=== PATIENT | male | born 1995 | race Caucasian/White ===

== ENCOUNTER 2019-07-30 18:21 | Emergency (ER) | payer BC, OTHER ==
[2019-07-30 18:57] LABS: ABS Lymphocytes 2.2 10^3/ul (1.0-4.8); ABS Monocytes 0.7 10^3/ul (0-0.8); ABS Neutrophils 5.7 10^3/ul (1.5-7.7); Eosinophil % 0.1 %; Hematocrit 44 % (42-52); Lymphocyte % 25.3 %; Mean Corpuscular HGB Conc 34 g/dL (31-36); Mean Corpuscular Hemoglobin 27 pg (27-31); Mean Corpuscular Volume 80 fL (80-94); Mean Platelet Volume 8.1 fL (7.4-10.4); Platelet Count 336 10^3/uL (150-450); Red Blood Count 5.54 10^6 /uL (4.18-5.48); Red Cell Distribution Width 14 % (10-15); White Blood Count 8.6 10^3/uL (3.5-10.8)
--- NOTE | 2019-07-30 19:01 | ED ---
Psychiatric Complaint - HPI Summary HPI Summary: Pt is a 23 y/o M presenting to the ED with a chief psychiatric complaint. Pts mother states theyre here to figure out whether hes having a manic episode or not, as he has not been sleeping much over the past couple of days. At one point , he was awake for over 24 hours straight. One of his swing dance instructors is a psychotherapist and also expressed concern about some cryptic messages that had been posted on his Facebook page. Pt denies other sx aside from insomnia, including abd pain or fever. Hx marijuana use. - History Of Current Complaint Chief Complaint: EDPsychosocial Time Seen by Provider: 07/30/19 18:38 Accompanied By: mom Hx Obtained From: Patient, Family/Industrial Electrician Onset/Duration: Gradual Onset, Lasting Days, Still Present Timing: Days Severity Initially: Moderate Severity Currently: Moderate Aggravating Factor(s): Nothing Alleviating Factor(s): Nothing Associated Signs And Symptoms: Positive: Sleep Disturbance - Allergies/Home Medications Allergies/Adverse Reactions: Allergies Allergy/AdvReac Type Severity Reaction Status Date / Time No Known Allergies Allergy Verified 07/30/19 18:37 PMH/Surg Hx/FS Hx/Imm Hx Previously Healthy: Yes Endocrine/Hematology History: Denies: Hx Diabetes Cardiovascular History: Denies: Hx Hypertension Infectious Disease History: No Infectious Disease History: Denies: Traveled Outside the [place] in Last 30 Days - Family History Known Family History: Positive: Other - maternal: [place], paternal: anxiety, depression, OCD, paranoia - Social History Alcohol Use: Rare Hx Substance Use: No Substance Use Type: Reports: None Hx Tobacco Use: Yes Smoking Status (MU): Current Every Day Smoker Review of Systems Positive: Other - insomnia. Negative: Fever Negative: Abdominal Pain All Other Systems Reviewed And Are Negative: Yes Physical Exam - Summary Physical Exam Summary: Constitutional: Well-developed, Well-nourished, Alert. (-) Distressed Skin: Warm, Dry HENT: Normocephalic; Atraumatic Eyes: Conjunctiva normal Neck: Musculoskeletal ROM normal neck. (-) JVD, (-) Stridor, (-) Nuchal rigidity Cardio: Rhythm regular, rate normal, Heart sounds normal; Intact distal pulses; Radial pulses are 2+ and symmetric. (-) Murmur Pulmonary/Chest wall: Effort normal. (-) Respiratory distress, (-) Wheezes, (-) Rales Abd: Soft, (-) tenderness, (-) Distension, (-) Guarding, (-) Rebound Musculoskeletal: (-) Edema Neuro: Alert, Oriented x3 Psych: Mood and affect nml, tangential speech Triage Information Reviewed: Yes Vital Signs On Initial Exam: Initial Vitals Temp Pulse Resp BP Pulse Ox 97.5 F 115 16 170/94 99 07/30/19 18:26 07/30/19 18:26 07/30/19 18:26 07/30/19 18:26 07/30/19 18:26 Vital Signs Reviewed: Yes Procedures - Sedation Patient Received Moderate/Deep Sedation with Procedure: No Diagnostics - Vital Signs Vital Signs Temp Pulse Resp BP Pulse Ox 07/30/19 18:26 97.5 F 115 16 170/94 99 - Laboratory Lab Results: Lab Results 07/30/19 Range/Units 18:48 WBC 8.6 (3.5-10.8) 10^3/uL RBC 5.54 H (4.18-5.48) 10^6 /uL Hgb 15.0 (14.0-18.0) g/dL Hct 44 (42-52) % MCV 80 (80-94) fL MCH 27 (27-31) pg MCHC 34 (31-36) g/dL RDW 14 (10-15) % Plt Count 336 (150-450) 10^3/uL MPV 8.1 (7.4-10.4) fL Neut % (Auto) 65.7 % Lymph % (Auto) 25.3 % Stoddard % (Auto) 8.4 % Eos % (Auto) 0.1 % Baso % (Auto) 0.5 % Absolute Neuts (auto) 5.7 (1.5-7.7) 10^3/ul Absolute Lymphs (auto) 2.2 (1.0-4.8) 10^3/ul Absolute Monos (auto) 0.7 (0-0.8) 10^3/ul Absolute Eos (auto) 0.0 (0-0.6) 10^3/ul Absolute Basos (auto) 0.0 (0-0.2) 10^3/ul Absolute Nucleated RBC 0.0 10^3/ul Nucleated RBC % 0.0 Result Diagrams: 07/30/19 18:48 07/30/19 18:48 Lab Statement: Any lab studies that have been ordered have been reviewed, and results considered in the medical decision making process. Re-Evaluation - Re-Evaluation 1st re-eval Re-Evaluation Time: 20:31 Change: Improved Comment: As per Dr. Lance, pt is stable for discharge with dx of mood disorder nos. Course/Dx - Course Course Of Treatment: 23-year-old male presenting with manic-like symptoms. Patient denies SI or HI. Symptoms could be 2/2 to marijuana use. Cooperative room. Place on every 15 observation. Placed in gown, we'll have mental health evaluate. - Differential Dx/Clinical Impression Provider Diagnosis: Mood disorder Discharge ED - Sign-Out/Discharge Documenting (check all that apply): Patient Departure - Discharge Plan Condition: Stable Disposition: HOME Patient Education Materials: Mood Disorders (ED) Referrals: Sherry Mistry MD [Medical Doctor] - Additional Instructions: Per completion of a mental health evaluation, you are cleared for release and do not require inpatient psychiatric hospitalization at this time. Please go to nearest emergency room or call 911 if safety concerns arise or condition worsens. Important Phone Numbers: [facility] ph:[phone] Su[facility] Prevention [facility] Crisis Services ph:[phone] National Suicide Prevention Lifeline ph:[phone] AVDA (4501) [facility] ph:[phone] Alcoholics Anonymous ph: [facility] ph:[phone] [facility] ph:[phone] RECOMMENDATION: Follow up with primary care doctor on Thursday. Also, follow up with [facility] - Billing Disposition and Condition Condition: STABLE Disposition: Home - Attestation Statements Document Initiated by Scribe: Yes Documenting Scribe: Perri Hdz Provider For Whom Scribe is Documenting (Include Credential): Tera Bhardwaj MD. Scribe Attestation: Perri Cotton, scribed for Tera Bhardwaj MD. on 07/30/19 at 1535. Scribe Documentation Reviewed: Yes Provider Attestation: The documentation as recorded by the scribe, Perri Hdz accurately reflects the service I personally performed and the decisions made by me, Tera Bhardwaj MD. Status of Scribe Document: Viewed
[2019-07-30 19:04] LABS: Urine Appearance Clear; Urine Bilirubin Negative (Negative); Urine Blood Negative (Negative); Urine Color Yellow; Urine Glucose Negative (Negative); Urine Ketones Trace (Negative); Urine Nitrite Negative (Negative); Urine Protein Negative (Negative); Urine Specific Gravity 1.009 (1.010-1.030); Urine Urobilinogen Negative (Negative)
[2019-07-30 19:08] LABS: Albumin 5.1 g/dL (3.2-5.2); Anion Gap 8 mmol/L (2-11); CO2 Carbon Dioxide 30 mmol/L (22-32); Calcium 9.3 mg/dL (8.6-10.3); Chloride 99 mmol/L (101-111); Potassium 3.5 mmol/L (3.5-5.0); Sodium 137 mmol/L (135-145)
[2019-07-30 19:14] LABS: ALT 11 U/L (7-52); AST 17 U/L (13-39); Albumin/Globulin Ratio 1.9 (1-3); Alkaline Phosphatase 45 U/L (34-104); BUN/Creatinine Ratio 13.6 (8-20); Blood Urea Nitrogen 14 mg/dL (6-24); EGFR African American 109.3 (>60); EGFR Non-African American 90.3 (>60); Globulin 2.7 g/dL (2-4); Glucose 164 mg/dL (70-100); Total Protein 7.8 g/dL (6.4-8.9)
[2019-07-30 19:18] LABS: Urine Benzodiazepine Screen None Detected (None Detect); Urine Opiates Screen None Detected (None Detect)
[2019-07-30 19:25] LABS: Acetaminophen < 15 mcg/mL; Alcohol < 10 mg/dL (<10); Salicylate < 2.50 mg/dL (<30)
[2019-07-30 19:39] LABS: TSH (Thyroid Stimulating Horm) 0.66 mcIU/mL (0.34-5.60)
[2019-07-30 20:46] VITALS: BP 139/88
== END 2019-07-30 20:40 | disposition home or self-care (01) ==
LOC: ED 18:21
DX: F39 Unspecified mood [affective] disorder (principal); F17.200 Nicotine dependence, unspecified, uncomplicated
CPT/HCPCS: 36415; 80053; 80307; 80320; 80329; 81003; 84443; 85025; 99284; G0480

== ENCOUNTER 2019-08-01 14:58 | Inpatient (IN) | payer BC, OTHER ==
--- NOTE | 2019-08-01 15:06 | ED ---
Psychiatric Complaint - HPI Summary HPI Summary: The patient is a 23 y/o M arriving via ambulance with police to [facility] as 945 with need for psychiatric evaluation. Per EMS, the patient had been pulled over this morning while driving with a friend, and there were drugs on board. The patient ended up in the police station and had been lying on the floor asking for an interview and requesting handcuffs as he is a danger to himself and indicated that he would take their guns. In the ED, he is yelling and hostile in frustration. He was here two days ago with a similar but not as severe presentation and was safe for discharge following MHE. No PMHx. FHx: anxiety, depression, OCD, paranoia. Current smoker, rare EtOH, no substance use. Medications reviewed. Allergies noted. Level 5 Caveat secondary to patients state of agitation. History obtained from police, EMS, and medical records. - History Of Current Complaint Hx Obtained From: EMS, Medical Records, Other: - police Hx From Patient Unobtainable Due To: Other - Level 5 Caveat - patient is agitated Onset/Duration: Lasting Hours, Still Present Timing: Constant Character: Frustrated Aggravating Factor(s): Other - pulled over by police this morning - Allergies/Home Medications Allergies/Adverse Reactions: Allergies Allergy/AdvReac Type Severity Reaction Status Date / Time No Known Allergies Allergy Verified 08/01/19 15:12 Home Medications: Home Medications NK [No Home Medications Reported] 08/01/19 [History Confirmed 08/01/19] PMH/Surg Hx/FS Hx/Imm Hx Endocrine/Hematology History: Denies: Hx Diabetes Cardiovascular History: Denies: Hx Hypertension Psychiatric History: Denies: Hx Eating Disorder, Hx Depression, Hx Post Traumatic Stress Disorder , Hx Schizophrenia, Hx Bipolar Disorder, Hx Suicide Attempt - Surgical History Surgical History: Unable to Obtain/Confirm Surgery Procedure, Year, and Place: Level 5 - pt agitated - Family History Known Family History: Positive: Other - maternal: [place], paternal: anxiety, depression, OCD, paranoia - Social History Alcohol Use: Rare Hx Substance Use: No Substance Use Type: Reports: None Substance Use Comment - Amount & Last Used: 1 day ago Hx Tobacco Use: Yes Smoking Status (MU): Current Every Day Smoker Review of Systems Positive: Other - hostile, yelling, frustrated All Other Systems Reviewed And Are Negative: No - Comments Additional Review of Systems Comments: Level 5 Caveat secondary to patients state of agitation. Physical Exam - Summary Physical Exam Summary: General: Well appearing, no distress, Patient is agitated HEENT: PERRL Cardiovascular: Skin is well perfused Pulmonary: No respiratory distress, no tachypnea Abdomen: Non-distended Skin: Warm, pink, dry MSK: No edema Psych: Tangential speech, Yelling, Hostile Neuro: A&Ox3 Triage Information Reviewed: Yes Vital Signs Reviewed: Yes Completion Of Physical Exam Limited Due To: Level 5 - patient is agitated Procedures - Sedation Patient Received Moderate/Deep Sedation with Procedure: No Re-Evaluation - Re-Evaluation First Eval Re-Evaluation Time: 15:00 Comment: Patient is medically clear for MHE. Course/Dx - Course Course Of Treatment: 23 y/o male p/w paranoia, delusions and aggressive behavior. On arrival to ED, patient verbally aggressive with staff however directable. Patient was placed in room, placing gown. Put on constant observation. Bed removed the room as patient was laying on the floor. Psychiatry evaluated patient and he is appropriate for involuntary admission. - Differential Dx/Clinical Impression Provider Diagnosis: Psychotic disorder - Physician Notifications Discussed Care Of Patient With: Kwame Otoole - psychiatry Time Discussed With Above Provider: 15:40 Instructed by Provider To: Other - Dr. Otoole and mental health staff have evaluated the patient and have determined he is appropriate for involuntary admission. Discharge ED - Sign-Out/Discharge Documenting (check all that apply): Patient Departure - Patient admitted by Dr. Otoole to the [facility] psychiatric unit. - Discharge Plan Condition: Stable Disposition: PSYCHIATRIC FACILITY-[facility] Referrals: No Primary Care Phys,[facility] [Primary Care Provider] - - Billing Disposition and Condition Condition: STABLE Disposition: Psychiatric Facility [facility] - Attestation Statements Document Initiated by Scribe: Yes Documenting Scribe: Jackelyn Hay Provider For Whom Itzel is Documenting (Include Credential): Dr. Tera Bhardwaj MD Scribe Attestation: Jackelyn Cotton scribed for Dr. Tera Bhardwaj MD on 08/01/19 at 1831. Scribe Documentation Reviewed: Yes Provider Attestation: The documentation as recorded by the Jackelyn gracia accurately reflects the service I personally performed and the decisions made by me, Dr. Tera Bhardwaj MD Status of Scribe Document: Viewed
[2019-08-01] MEDS ORDERED: Al Hydrox/Mg Hydrox/Simet LIQ* 30 ML UDC PO PRN (15:50)
[2019-08-01] MEDS ORDERED: Acetaminophen TAB* 325 MG PO PRN (15:50)
[2019-08-01] MEDS ORDERED: LORazepam TAB(*) 1 MG PO PRN (15:52)
[2019-08-01] MEDS ORDERED: chlorproMAZINE TAB* 100 MG PO PRN (15:52)
--- NOTE | 2019-08-02 11:37 | HP ---
H&P (Free Text) History and Physical: Justification for admission: Immediate Safety. CC " I just want to dance" The patient was brought to [facility] by EMS with police for MHE following an incident where he was pulled over with drugs in the car and was brought into the police station and began to lay on the floor asking for an interview and requesting to be handcuffed because he is a danger to himself and would take the police guns. Patient was seen in his room before encounter in his room pacing. The patient expressed that the government is spying on him and asks if it is really true that people landed on the [place], patient is requesting to Skype his mother and begins to say I once watched a movie with her. He denied access to firearms or stockpiles of medications. He reported diminished sleep and appetite, and is refusing medications and to drink water. The patient denied auditory and/ or visual hallucinations. Psychosis Patient believes that the government is out to get him, and spies on him and feels unsafe of all government entities. Bipolar Patient has increased talkativeness and feeling irritable most of the time while having an persistent abundance of energy most of the day without the use of energy drinks, stimulants, or recreational drug use. He reported having the decreased need to sleep for days. Per his mother he has been spending money recklessly . Depression Denied feeling depressed. Denied having diminished interests which were found to be enjoyable in the past. Denied having crying spells , feeling empty inside , feelings of hopelessness , and worthlessness. Denied unintentional weight loss and appetite. Denied interruption of sleep , or feeling tired throughout the day. Denied loss of energy or lack of motivation to complete tasks. Denied overwhelming feelings of guilt or decreased concentration. Denied recurrent thoughts of . Denied thoughts that they would be better off . Anxiety Denied having symptoms of anxiety such as having times where heart feels that it is beating out of chest , sweaty palms, or shallow breathing. Denied having uncomfortable or intrusive thoughts. Denied feeling restless, high strung, or worrying too much most of the time. Phobias: Patient denied having excessive fear of a particular thing or situation. Eating disorders: Patient denied having excessive eating habits or feelings of guilt after eating. Denied repeated episodes of self induced vomiting after eating. PTSD Denied flashbacks, nightmares and avoidance of a prior traumatic event. PAST PSYCHIATRIC HISTORY: Prior Diagnosis : None History of past Psychiatric Hospitalizations: Denied prior psychiatric admission. History of past suicide/homicide attempts : Denied past suicide attempts, denied repeated self injurious behavior. Denied history of violence. Outpatient follow-up: Denied Medications: Denied a past trials of medication Guardianship: None. FAMILY HISTORY: - Suicide: Denied family history of suicide. - Mental illness: Denied a history of mental health in immediate family members. - Substance abuse: Denied substance abuse among family members. SUBSTANCE ABUSE HISTORY: - EtOH: Denied recent use. No associated legal issues, blackouts, seizures, DTs or past hospitalizations due to alcohol. - Tobacco: 1/2 PPD - Cannabis: Denied - Heroin: Denied - Cocaine: Denied - Substance abuse treatment: Denied past substance abuse treatment SOCIAL HISTORY: - Denied a history of childhood physical and or sexual abuse Born in [place] - Education: - Living situation: Currently lives in [place] with his mother - Employment history: Works at [employer] - Relationship: Single and has no children. - Legal history: Denied - service history: Denied PAST MEDICAL HISTORY: Denied heart disease, diabetes, cancer and/ or other medical conditions. - Allergies: Denied drug or other allergies. Physical Exam: Please see ED note Mental Status Exam on Admission APPEARANCE : 23 year old Male who appears stated age. Patient is malodourous, and appears to have poor hygiene and grooming. BEHAVIOR: evasive EYE CONTACT: Poor PSYCHOMOTOR ACTIVITY: restless MOVEMENTS: pacing SPEECH : Increased rate MOOD : "I am stressed " AFFECT : Type is elevated Range is restricted Mood Incongruent THOUGHT PROCESS: Formulated in tangential disorganized THOUGHT CONTENT: paranoid delusions PERCEPTION: No current auditory or visual hallucinations. SUICIDALITY Denied suicidal ideation, intent or plan. HOMICIDALITY Denied homicidal ideation, intent or plan. Insight/judgment: Poor insight and judgment ORIENTATION: Oriented to self, location, and time. Diagnosis on Admission: Bipolar I disorder with psychotic features Assessment: 23 year old male with no known psychiatric history came to the hospital by EMS and police after he requested to be handcuffed and threatened to take guns from the police Plan #Admit to [facility], Q15 minute observation. Start regular diet. Encourage participation in group therapy and psychoeducation #Patient evaluated in ED and was determined by the emergency room Physician to be medically fit for admission to the [facility]. # Justification for Admission: For immediate safety per outlined in the [facility] Code. # The patient requires psychiatric inpatient admission at this time to assure safety, receive treatment and work toward stabilization. # Labs ordered: CBC, CMP, UDS, TSH, HBA1c, TSH, Toxicology screen, Urine analysis, and lipid profile. EKG ordered for risk of QT prolongation of antipsychotic medication. # Obtain collateral information once release is signed. # Collaboration with Commercial Production Editor Marilia Castaneda # Start seroquel 300mg qhs # Start depakote 250mg BID Tobacco use disorder: nicotine supplement offered and put in place. #Goals before discharge include: To eliminate/ reduce suicidal ideation Tentative Discharge: Pending psychiatric stabilization Pt's mother's name is Rashida Stern, she can be reached at [phone]. The risks, benefits, and alternative treatment options were discussed as well as the risks of refusing treatment. After this discussion and an acknowledgement of this understanding was made. A risk/ benefit assessment of treatment was considered and discussed with the patient. When comparing the risks of treatment with the dangers of not receiving treatment, the benefits of treatment outweigh the treatment risks at this time. Risks of allergy, suicidal ideation, behavioral changes, dystonia, rashes, electrolyte imbalances, movement disorders, cardiac conduction changes, serotonin syndrome, metabolic risks and NMS were among some of the risks discussed. Acetaminophen (Tylenol Tab*) 650 mg PO Q4H PRN PRN Reason: for pain; or Temp >101 F Al Hydrox/Mg Hydrox/Simethicone (Maalox Plus*) 30 ml PO Q4H PRN PRN Reason: INDIGESTION Chlorpromazine HCl (Thorazine Tab*) 100 mg PO Q6H PRN PRN Reason: AGITATION Lorazepam (Ativan Tab(*)) 1 mg PO Q6H PRN PRN Reason: ANXIETY Quetiapine Fumarate (Seroquel Tab*) 400 mg PO BEDTIME CARLINE Valproic Acid (Depakene Cap(*)) 500 mg PO BID CARLINE
[2019-08-02] MEDS ORDERED: QUEtiapine TAB* 300 MG PO SCH (21:00)
[2019-08-02] MEDS ORDERED: QUEtiapine TAB* 100 MG PO SCH (21:00)
[2019-08-02] MEDS: Valproic Acid CAP(*) 250 MG PO SCH ×2 (21:29)
--- NOTE | 2019-08-03 13:01 | PN ---
Subjective - Subjective Date of Service: 08/03/19 Service Type: [id number] Hosp care 35 min high complexity Subjective: Nursing Report: Patient was visible on unit, no behavioral incidents. Compliant with medications CC: "I hear voices" Patient was seen and evaluated today. The patient reported he thinks someone is going to hurt him. The patient reports taking his medications. Per nursing no behavioral issues or overnight events reported. Patient reported that he is tolerating medications without side effects. Objective - General Observations Appearance: Disheveled Appears Stated Age: Yes Stature: Thin Posture: Slumped Eye Contact: Avoidant Behavior/Activity: Peculiar, Impulsive - Interaction Observations Attitude Towards Examiner: Mistrustful Stated Mood: Expansive, Anxious Affect: Restricted Speech Pattern/Tone: Excessive Thought Process: Disorganized, Loose Associations, Flight of Ideas Perception: Depersonalization Thought Content: Paranoid Thought Process: Lethality: Paranoid Ideation Hallucination Type: Auditory Delusion Type: Persecution - Cognitive Function Orientation: A&O x 4 Level of Consciousness: Awake - Medication Compliance Cooperative with Inpatient Medication Regimen: Yes - Group Participation Participates in Group Activities: No Assessment - Assessment Merits Inpatient Hospitalization: For Immediate Safety Clinical Impression: 23 year old male with no known psychiatric history came to the hospital by EMS by police after he requested to be handcuffed and threatened to take guns from the police Plan - Plan Treatment Plan: Name: JUANA STERN Birthdate: 1995 [id number] #Q15 minute observation. # The patient requires psychiatric inpatient admission at this time to assure safety, receive treatment and work toward stabilization. EKG ordered for risk of QT prolongation of antipsychotic medication. # Obtain collateral information once release is signed. # Collaboration with Outreach Liaison Marilia Castaneda # Increase seroquel 400mg qhs # Increase depakote 500mg BID Tobacco use disorder: nicotine supplement offered and put in place. #Goals before discharge include: To eliminate/ reduce suicidal ideation Tentative Discharge: Pending psychiatric stabilization Pt's mother's name is Rashida Stern, she can be reached at [phone]. Continued Medication Management: Continue Outpt Medication Medications: Current Medications Acetaminophen (Tylenol Tab*) 650 mg PO Q4H PRN PRN Reason: for pain; or Temp >101 F Al Hydrox/Mg Hydrox/Simethicone (Maalox Plus*) 30 ml PO Q4H PRN PRN Reason: INDIGESTION Chlorpromazine HCl (Thorazine Tab*) 100 mg PO Q6H PRN PRN Reason: AGITATION Lorazepam (Ativan Tab(*)) 1 mg PO Q6H PRN PRN Reason: ANXIETY Quetiapine Fumarate (Seroquel Tab*) 400 mg PO BEDTIME CARLINE Valproic Acid (Depakene Cap(*)) 500 mg PO BID CARLINE - Discharge Plan Discharge Plan: Inpatient Hospitalization
[2019-08-03] MEDS: Valproic Acid CAP(*) 250 MG PO SCH ×2 (14:21→20:20)
[2019-08-03] MEDS ORDERED: QUEtiapine TAB* 100 MG PO SCH (21:00)
[2019-08-04] MEDS: Valproic Acid CAP(*) 250 MG PO SCH ×2 (08:10→21:03)
--- NOTE | 2019-08-04 10:25 | PN ---
Subjective - Subjective Date of Service: 08/04/19 Service Type: [id number] Hosp care 35 min high complexity Subjective: Nursing Report: Patient was visible on unit, no behavioral incidents. Slept 6 hours CC: "I am scared of people other than my mother" Patient was seen and evaluated today. The patient reported he feels unsafe. He took medications. He reported having adequate sleep (6hours). Per nursing no behavioral issues or overnight events reported. Patient reported that he is tolerating medications without side effects. Objective - General Observations Appearance: Disheveled Appears Stated Age: Yes Stature: Thin Posture: Tense Eye Contact: Intense Behavior/Activity: Stereotyped, Peculiar, Impulsive - Interaction Observations Attitude Towards Examiner: Cooperative Stated Mood: Elevated Affect: Restricted Speech Pattern/Tone: Normal Volume Thought Process: Loose Associations Perception: Derealization Thought Content: Paranoid Thought Process: Lethality: Paranoid Ideation Hallucination Type: Auditory Delusion Type: Reference - Cognitive Function Orientation: A&O x 4 Level of Consciousness: Alert - Medication Compliance Cooperative with Inpatient Medication Regimen: Yes - Group Participation Participates in Group Activities: No Assessment - Assessment Merits Inpatient Hospitalization: For Immediate Safety Clinical Impression: 23 year old male with no known psychiatric history came to the hospital by EMS by police after he requested to be handcuffed and threatened to take guns from the police Plan - Plan Treatment Plan: Name: JUANA STERN Birthdate: 1995 [id number] #Q15 minute observation. # The patient requires psychiatric inpatient admission at this time to assure safety, receive treatment and work toward stabilization. # EKG ordered for risk of QT prolongation of antipsychotic medication. Rate 84 and QTc 412 # Collateral information obtained from mother Rashida Stern, . # Collaboration with Mill Manager Marilia Castaneda # Continue seroquel 400mg qhs # Continue depakote 500mg BID #Valproic acid level Thursday #Family meeting Thursday with his mother Tobacco use disorder: nicotine supplement offered and put in place. #Goals before discharge include: To eliminate/ reduce suicidal ideation Tentative Discharge: Pending psychiatric stabilization Continued Medication Management: Continue Outpt Medication Medications: Current Medications Acetaminophen (Tylenol Tab*) 650 mg PO Q4H PRN PRN Reason: for pain; or Temp >101 F Al Hydrox/Mg Hydrox/Simethicone (Maalox Plus*) 30 ml PO Q4H PRN PRN Reason: INDIGESTION Chlorpromazine HCl (Thorazine Tab*) 100 mg PO Q6H PRN PRN Reason: AGITATION Lorazepam (Ativan Tab(*)) 1 mg PO Q6H PRN PRN Reason: ANXIETY Last Admin: 08/04/19 08:10 Dose: 1 mg Quetiapine Fumarate (Seroquel Tab*) 400 mg PO BEDTIME [facility] Last Admin: 08/03/19 20:19 Dose: 400 mg Valproic Acid (Depakene Cap(*)) 500 mg PO BID [facility] Last Admin: 08/04/19 08:10 Dose: 500 mg - Discharge Plan Discharge Plan: Inpatient Hospitalization
[2019-08-04] MEDS ORDERED: QUEtiapine TAB* 300 MG PO SCH (21:00)
[2019-08-04] MEDS ORDERED: QUEtiapine TAB* 100 MG PO SCH (21:00)
[2019-08-05] MEDS: Valproic Acid CAP(*) 250 MG PO SCH ×2 (11:03→21:20)
--- NOTE | 2019-08-05 11:28 | PN ---
BSU: Group Therapy Note - Service Type Service Type: 16852 Group Psychotherapy - Cognitive Behavioral Group Note: Mainor was pleasantly related this moring, but continues to be disorganized in thought. He was active in conversation, but very tangential. He responded well to redirection, and was able to listen to peer and staff conversation attentively. He voices importance of compliance with medicaitons, and reports improved sleep hygiene.
--- NOTE | 2019-08-05 11:48 | PN ---
Subjective - Subjective Date of Service: 08/05/19 Service Type: 48240 Hosp care 35 min high complexity Subjective: Nursing Report: Patient was visible on unit, no behavioral incidents. Slept overnight. CC: "Just fine" Patient was seen and evaluated today. The patient reported he is better but feels that he should not be here. He reported getting good sleep. He reported having adequate appetite and sleep. Per nursing no behavioral issues or overnight events reported. Patient reported that he is tolerating medications without side effects. Objective - General Observations Appearance: Disheveled Appears Stated Age: Yes Stature: Thin Posture: Slumped Eye Contact: Avoidant Behavior/Activity: Accelerated, Peculiar - Interaction Observations Attitude Towards Examiner: Evasive Stated Mood: Elevated Affect: Restricted Speech Pattern/Tone: Appropriate Thought Process: Coherent Perception: WNL Thought Content: Paranoid Thought Process: Lethality: Paranoid Ideation Hallucination Type: Denies Delusion Type: Denies - Cognitive Function Orientation: A&O x 4 Level of Consciousness: Awake - Medication Compliance Cooperative with Inpatient Medication Regimen: Yes - Group Participation Participates in Group Activities: Partial Assessment - Assessment Merits Inpatient Hospitalization: For Immediate Safety Clinical Impression: 23 year old male with no known psychiatric history came to the hospital by EMS by police after he requested to be handcuffed and threatened to take guns from the police Plan - Plan Treatment Plan: Name: JUANA STERN Birthdate: 1995 [id number] #Q30 minute observation with comfort room # The patient requires psychiatric inpatient admission at this time to assure safety, receive treatment and work toward stabilization. # EKG ordered for risk of QT prolongation of antipsychotic medication. Rate 84 and QTc 412 # Collateral information obtained from mother Rashida Stern, . # Collaboration with Upholstery Restorer Marilia Castaneda # Continue seroquel 600mg qhs # Continue depakote 500mg BID #Valproic acid level Thursday # Monitor vital signs #Family meeting Thursday with his mother Tobacco use disorder: nicotine supplement offered and put in place. #Goals before discharge include: To eliminate/ reduce suicidal ideation Tentative Discharge: Pending psychiatric stabilization Vital Signs Temp Pulse Resp BP Pulse Ox 98.2 F 114 16 136/84 100 08/05/19 08:00 08/05/19 08:00 08/05/19 08:00 08/05/19 08:00 08/05/19 08:00 Continued Medication Management: Continue Outpt Medication Medications: Current Medications Acetaminophen (Tylenol Tab*) 650 mg PO Q4H PRN PRN Reason: for pain; or Temp >101 F Al Hydrox/Mg Hydrox/Simethicone (Maalox Plus*) 30 ml PO Q4H PRN PRN Reason: INDIGESTION Chlorpromazine HCl (Thorazine Tab*) 100 mg PO Q6H PRN PRN Reason: AGITATION Lorazepam (Ativan Tab(*)) 1 mg PO Q6H PRN PRN Reason: ANXIETY Last Admin: 08/04/19 08:10 Dose: 1 mg Quetiapine Fumarate (Seroquel Tab*) 400 mg PO BEDTIME [facility] Last Admin: 08/04/19 21:03 Dose: 400 mg Valproic Acid (Depakene Cap(*)) 500 mg PO BID [facility] Last Admin: 08/05/19 11:03 Dose: 500 mg - Discharge Plan Discharge Plan: Inpatient Hospitalization
[2019-08-05] MEDS: QUEtiapine TAB* 300 MG PO SCH (21:20)
[2019-08-06] MEDS: Valproic Acid CAP(*) 250 MG PO SCH ×2 (09:44→20:24)
--- NOTE | 2019-08-06 14:22 | PN ---
Subjective - Subjective Date of Service: 08/06/19 Service Type: 75862 Hosp care 25 min moderate complexity Subjective: Mainor appears to have improved significantly but says he doesn't have any recollection of events leading up to his hospitalization. Today he denies any psychiatric problems what so ever and wants to be discharged home. Compliant with meds and apparently tolerating them well. Denies SI, HI or Delusions. Per nursing no issues. Objective - General Observations Appearance: Neat Stature: Thin Posture: WNL Eye Contact: Average Behavior/Activity: WNL - Interaction Observations Attitude Towards Examiner: Cooperative Attitude Towards Parent/Guardian: Positive Interaction Stated Mood: Euthymic Affect: Full Speech Pattern/Tone: Clear, Appropriate, Normal Volume Thought Process: Coherent, Goal Directed Perception: WNL Thought Content: WNL Hallucination Type: Denies Delusion Type: Denies - Cognitive Function Orientation: A&O x 4 Level of Consciousness: Awake, Alert, Appropriate Cognition: WNL Estimated Intelligence: Normal Insight: WNL Judgment Within Normal Limits: No Ability to Make Reasonable Decisions: Mildly Impaired - Medication Compliance Cooperative with Inpatient Medication Regimen: Yes - Group Participation Participates in Group Activities: Yes Assessment - Assessment Merits Inpatient Hospitalization: Consolidate Improvements, For Discharge Planning Clinical Impression: 23 year old male with no known psychiatric history came to the hospital by EMS by police after he requested to be handcuffed and threatened to take guns from the police Plan - Plan Treatment Plan: Name: MAINOR STERN Birthdate: 1995 [id number] #Q30 minute observation with comfort room # The patient requires psychiatric inpatient admission at this time to assure safety, receive treatment and work toward stabilization. # EKG ordered for risk of QT prolongation of antipsychotic medication. Rate 84 and QTc 412 # Collateral information obtained from mother Rashida Stern, . # Collaboration with Prep Manager Marilia Castaneda # Continue seroquel 600mg qhs # Continue depakote 500mg BID #Valproic acid level Thursday # Monitor vital signs #Family meeting Thursday with his mother Tobacco use disorder: nicotine supplement offered and put in place. #Goals before discharge include: To eliminate/ reduce suicidal ideation Tentative Discharge: Pending psychiatric stabilization Vital Signs Temp Pulse Resp BP Pulse Ox 98.2 F 114 16 136/84 100 08/05/19 08:00 08/05/19 08:00 08/05/19 08:00 08/05/19 08:00 08/05/19 08:00 Continued Medication Management: Continue Outpt Medication Medications: Current Medications Acetaminophen (Tylenol Tab*) 650 mg PO Q4H PRN PRN Reason: for pain; or Temp >101 F Al Hydrox/Mg Hydrox/Simethicone (Maalox Plus*) 30 ml PO Q4H PRN PRN Reason: INDIGESTION Chlorpromazine HCl (Thorazine Tab*) 100 mg PO Q6H PRN PRN Reason: AGITATION Lorazepam (Ativan Tab(*)) 1 mg PO Q6H PRN PRN Reason: ANXIETY Last Admin: 08/04/19 08:10 Dose: 1 mg Quetiapine Fumarate (Seroquel Tab*) 600 mg PO BEDTIME [facility] Last Admin: 08/05/19 21:20 Dose: 600 mg Valproic Acid (Depakene Cap(*)) 500 mg PO BID [facility] Last Admin: 08/06/19 09:44 Dose: 500 mg - Discharge Plan Discharge Plan: Outpatient Follow Up Outpatient Program: [facility]
[2019-08-06] MEDS: QUEtiapine TAB* 300 MG PO SCH (20:24)
[2019-08-07] MEDS: Valproic Acid CAP(*) 250 MG PO SCH ×2 (10:01→21:50)
[2019-08-07 20:45] LABS: ABS Lymphocytes 2.2 10^3/ul (1.0-4.8); ABS Monocytes 0.5 10^3/ul (0-0.8); ABS Neutrophils 5.6 10^3/ul (1.5-7.7); Eosinophil % 0.5 %; Hematocrit 45 % (42-52); Hemoglobin 14.8 g/dL (14.0-18.0); Lymphocyte % 26.3 %; Mean Corpuscular HGB Conc 33 g/dL (31-36); Mean Corpuscular Hemoglobin 27 pg (27-31); Mean Corpuscular Volume 81 fL (80-94); Mean Platelet Volume 8.8 fL (7.4-10.4); Nucleated Red Blood Cells % 0.1; Platelet Count 221 10^3/uL (150-450); Red Blood Count 5.57 10^6 /uL (4.18-5.48); Red Cell Distribution Width 14 % (10-15); White Blood Count 8.5 10^3/uL (3.5-10.8)
[2019-08-07 21:00] LABS: Albumin 5.1 g/dL (3.2-5.2); Albumin/Globulin Ratio 2.3 (1-3); Calcium 9.4 mg/dL (8.6-10.3); EGFR African American 124.9 (>60); EGFR Non-African American 103.2 (>60); Globulin 2.2 g/dL (2-4); Magnesium 2.1 mg/dL (1.9-2.7); Potassium 3.6 mmol/L (3.5-5.0); Total Bilirubin 0.6 mg/dL (0.2-1.0); Total Protein 7.3 g/dL (6.4-8.9)
[2019-08-07 21:36] LABS: TSH (Thyroid Stimulating Horm) 1.16 mcIU/mL (0.34-5.60)
[2019-08-07 21:38] LABS: Free T4 0.84 ng/dL (0.61-1.12)
[2019-08-07 21:47] LABS: Urine Appearance Clear; Urine Bilirubin Negative (Negative); Urine Blood Negative (Negative); Urine Color Colorless; Urine Glucose Negative (Negative); Urine Ketones Negative (Negative); Urine Nitrite Negative (Negative); Urine Protein Negative (Negative); Urine Specific Gravity 1.001 (1.010-1.030); Urine Urobilinogen Negative (Negative)
[2019-08-07 22:02] LABS: Urine Benzodiazepine Screen None Detected (None Detect); Urine Opiates Screen None Detected (None Detect)
--- NOTE | 2019-08-08 03:31 | CONS ---
CC: Dr. Mitali Ledesma * CONSULTATION REPORT: DATE OF CONSULT: 08/07/19 PRIMARY CARE PROVIDER: Dr. Mitali Ledesma. MY ATTENDING PHYSICIAN WHILE IN THE HOSPITAL: Dr. Child (report dictated by Song Marcano NP). REQUESTING PHYSICIAN IN CONSULT: Dr. Tiwari. REASON FOR MEDICAL CONSULT: Evaluation of tachycardia. HISTORY OF PRESENT ILLNESS: Mr. Perkins is a 24-year-old male patient who presented to the behavioral services unit on 08/01/19 with concerns of being pulled over by EMS with police for mental health evaluation following an incident where he was pulled over with drugs in the car and was brought into the police station and was lying on the floor asking for interview and requesting to be hand cuffed because he is a danger to himself and want to take the police guns. He was admitted and was stabilized from that standpoint. There was concern, due to the suicidal ideation, he was started on initially high-dose Seroquel and Depakote. It has been noted that he has been tachycardic throughout his hospitalization stay here. Last night, he had an episode of tachycardia around the same time at 8 with the heart rate in the 140s to 150s and then again tonight, he had heart rate in the 140s, now in the one teens. He denies feeling short of breath, denies feeling lightheaded, denies feeling anxious, denies having any chest pain, no shortness of breath. He says that few weeks prior to this, he was feeling febrile. He thinks that he may have been suffering from the flu. It is of note that prior to the heart rate at 1900 tonight, he was having a phone call with his mother and was contemplating not taking his medications and wanted to be discharged so that he could do this on his own. There were concerns because of the persistent tachycardia and we were asked to evaluate in consult. He denies any recent vomiting, no diarrhea, no fevers were reported here, and denies being in any pain and denied any other drug use with the exception of cannabis. PAST MEDICAL HISTORY: The past medical history was denied. PAST SURGICAL HISTORY: He had surgery to his right arm previously. MEDICATIONS: His current medications include: 1. Tylenol 650 mg every 4 hours as needed. 2. Maalox 30 cc every 4 hours as needed. 3. Thorazine 100 mg every 6 hours as needed. 4. Ativan 1 mg every 6 hours as needed. 5. Depakote 500 mg p.o. twice a day. ALLERGIES: To medications include no known drug allergies. FAMILY HISTORY: He says his mother is healthy. Father has a history of lung cancer. SOCIAL HISTORY: He says he does smoke marijuana. He does not drink alcohol. He has denied any other drug use. No reports heroin use, methamphetamines, or cocaine abuse. His surrogate decision maker would be Dr. Mitali Ledesma per the patient. REVIEW OF SYSTEMS: There is no documented fever. He denied having any significant weight change. There is no double vision. He denies having any ear discharge. There was no rhinorrhea. No sore throat. No thyroid enlargement. Denied any chest pain. There is no orthopnea, no nocturnal dyspnea. There was no abdominal pain. No nausea, no vomiting. No dysuria, no frequency. No seizure, no loss of consciousness. No pruritus and no skin ulcerations. Review of 14 systems completed, all others are negative. PHYSICAL EXAM: Vital Signs: Blood pressure 152/94, pulse 113, respirations 16 , O2 saturation 100%, temperature 97.3. General: At this time, Mr. Perkins is a 24-year- old male patient. He appears to be well nourished, well developed. He is sitting in the psychiatric unit. He does not appear to be in any acute distress. HEENT: Head is atraumatic and normocephalic. Eyes: EOMs are intact. Sclerae anicteric and not pale. Neck: Supple. Throat: Oral mucosa appears to be moist. No oropharyngeal erythema. Heart: Sounds S1 and S2. He actually, when I was listening to him, had no murmurs, rubs, or gallops. Apically, his heart rate was noted to be at 100. Lungs: Clear to auscultation bilaterally. No wheezes, rales, or rhonchi. Abdomen: Soft, it was flat, nontender. Bowel sounds are present. Extremities: Again, no peripheral edema. He had 5/5 strength, moving all 4 extremities. Neurologic: He is awake, he is alert, he is oriented x3. Speech clear. Tongue midline. No facial drooping was noted. Pickle Maker were equal. His cranial nerves were intact. He had good strength throughout. He is moving all 4 extremities. Skin: Grossly intact. DIAGNOSTIC STUDIES/LAB DATA: Unfortunately, last labs that I have access to were from 07/30/19: WBC is 8.6, RBC of 5.54, hemoglobin of 15.0, hematocrit of 44, platelet count of 336. His chemistry, sodium 137, potassium 3.5, chloride 99, BUN 14, bicarb 30, creatinine of 1.03. Total bili 1.9. AST 17, ALT 11, alk phos 45. TSH 0.66. There was a toxicology screen, which was positive for cannabinoids, alcohol negative. He had an EKG done yesterday, which showed a sinus tachycardia, rate of [address] elevation. He did have LVH noted. There was some borderline depression in lead III and aVF, but no elevation was noted. When we reviewed it to a previous EKG from 08/03/19, again he does have a normal sinus rhythm with heart rate of 84. No ST elevations or T-wave inversions noted. The tachycardia was new. Old medical records were reviewed. ASSESSMENT AND PLAN: Mr. Perkins is a 24-year-old male patient presenting to the behavioral service unit after being admitted when he was arrested by police and the EMS as well, as he was found to be pulled over with drugs in his car and brought into the police station and in the police station was felt to be a danger to himself and was threatening to take the police guns, he was admitted for stabilization. We were asked to evaluate in consult for tachycardia. My recommendations at this point are: 1. 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 I will defer the management to Psychiatry. 2. Tachycardia. Etiology is unclear. I do note that he has had a borderline tachycardia since he has been here on 08/01/19. I do note that when he was here on 07/30/19, his heart rate was noted to be in the one teens as well. Etiology is unclear, however, I would like to check a CBC, CMP, TSH, free T4, checking a chest x-ray, echocardiogram given the left ventricular hypertrophy noted on EKG and the tachycardia. I also will check a urine tox screen and a urinalysis as well to look for secondary causes. I have asked nursing staff to check his vital signs every 4 hours for the next 24 hours. In addition to this, we will check a Depakote level as well and I have advised the patient to force fluids. I would consider giving him a liter of bolus if he does not improve. For the time being though, he is asymptomatic. We will continue to monitor. I am repeating an EKG tonight as well and we will continue to follow. 3. Fluids, electrolytes, and nutrition. I would encourage p.o. fluids, which he is doing. He can have regular diet. 4. DVT prophylaxis. Defer to the primary team. 5. Code status. Full code. TIME SPENT: Time spent on the consult was 60 minutes, greater than half of the time spent [id number] with the patient obtaining my history and physical, other half of that time was spent implementing plan of care. I did discuss the plan of care with my attending, Dr. Child. SONG MARCANO NP [id number]/CPS #: [id number] PANDA
[2019-08-08] MEDS ORDERED: LORazepam TAB(*) 1 MG PO PRN (09:30)
[2019-08-08] MEDS: Valproic Acid CAP(*) 250 MG PO SCH (13:12)
--- NOTE | 2019-08-08 13:55 | PN ---
Subjective - Subjective Date of Service: 08/08/19 Service Type: 25222 Hosp care 35 min high complexity Subjective: Nursing Report: Patient was visible on unit, no behavioral incidents. CC: "I just want to dance" Patient was seen and evaluated today. The patient reported he wrote a letter to his friends and family because he misses them not because he has plans to end his life. Patient slept 4 hours and has been eating meals. He reported having a racing heart yesterday. The patient reports attending some of the day groups. Per nursing no behavioral issues or overnight events reported. Patient denied chest pain, SOB, sweating. Objective - General Observations Appearance: Neat Appears Stated Age: Yes Stature: WNL Posture: Slumped Eye Contact: Avoidant Behavior/Activity: Stereotyped, Peculiar - Interaction Observations Attitude Towards Examiner: Evasive Stated Mood: Anxious Affect: Restricted Speech Pattern/Tone: Normal Volume Thought Process: [place] Perception: WNL Thought Content: Paranoid Thought Process: Lethality: Paranoid Ideation Hallucination Type: Denies Delusion Type: Denies - Cognitive Function Orientation: A&O x 4 Level of Consciousness: Awake - Medication Compliance Cooperative with Inpatient Medication Regimen: Yes - Group Participation Participates in Group Activities: No Assessment - Assessment Merits Inpatient Hospitalization: For Immediate Safety Clinical Impression: 23 year old male with no known psychiatric history came to the hospital by EMS by police after he requested to be handcuffed and threatened to take guns from the police Plan - Plan Treatment Plan: Name: JUANA STERN Birthdate: 1995 [id number] #Q15 minute observation # The patient requires psychiatric inpatient admission at this time to assure safety, receive treatment and work toward stabilization. # EKG QTc 412 # ECHO ordered # Collateral information obtained from mother Rashida Stern, . # Collaboration with Meter Installer Marilia Castaneda # Discontinue seroquel 600mg qhs # Start abilify 10mg po daily # Continue depakote 500mg BID #Valproic acid level 107 hold depakote for now and restart on 08/09/2019 # Reorder level for 08/10/19 # Medicine consult for Tachycardia #Family meeting Thursday 1230pm with his mother #Tobacco use disorder: nicotine supplement offered and put in place. #Goals before discharge include: To eliminate/ reduce suicidal ideation Tentative Discharge: Pending psychiatric stabilization Vital Signs Temp Pulse Resp BP Pulse Ox 97.9 F 131 17 121/77 100 08/08/19 08:00 08/08/19 12:27 08/08/19 12:27 08/08/19 12:27 08/08/19 12:27 08/07/19 08/07/19 08/07/19 20:34 20:34 21:05 WBC 8.5 RBC 5.57 H Hgb 14.8 Hct 45 MCV 81 MCH 27 MCHC 33 RDW 14 Plt Count 221 MPV 8.8 Neut % (Auto) 66.7 Lymph % (Auto) 26.3 Blanco % (Auto) 6.0 Eos % (Auto) 0.5 Baso % (Auto) 0.5 Absolute Neuts (auto) 5.6 Absolute Lymphs (auto) 2.2 Absolute Monos (auto) 0.5 Absolute Eos (auto) 0.0 Absolute Basos (auto) 0.0 Absolute Nucleated RBC 0.0 Nucleated RBC % 0.1 Sodium 138 Potassium 3.6 Chloride 101 Carbon Dioxide 30 Anion Gap 7 BUN 10 Creatinine 0.91 Est GFR ( Amer) 124.9 Est GFR (Non-Af Amer) 103.2 BUN/Creatinine Ratio 11.0 Glucose 147 H Calcium 9.4 Magnesium 2.1 Total Bilirubin 0.60 AST 13 ALT 11 Alkaline Phosphatase 39 Total Protein 7.3 Albumin 5.1 Globulin 2.2 Albumin/Globulin Ratio 2.3 TSH 1.16 Free T4 0.84 Urine Color Urine Appearance Urine pH Ur Specific [employer] Urine Protein Urine Ketones Urine Blood Urine Nitrate Urine Bilirubin Urine Urobilinogen Ur Leukocyte Esterase Urine Glucose Urine Opiates Screen None detected Ur Barbiturates Screen None detected Valproic Acid 107.0 H Ur Phencyclidine Scrn None detected Ur Amphetamines Screen None detected U Benzodiazepines Scrn None detected Urine Cocaine Screen None detected U Cannabinoids Screen None detected 08/07/19 21:05 WBC RBC Hgb Hct MCV MCH MCHC RDW Plt Count MPV Neut % (Auto) Lymph % (Auto) Blanco % (Auto) Eos % (Auto) Baso % (Auto) Absolute Neuts (auto) Absolute Lymphs (auto) Absolute Monos (auto) Absolute Eos (auto) Absolute Basos (auto) Absolute Nucleated RBC Nucleated RBC % Sodium Potassium Chloride Carbon Dioxide Anion Gap BUN Creatinine Est GFR ( Amer) Est GFR (Non-Af Amer) BUN/Creatinine Ratio Glucose Calcium Magnesium Total Bilirubin AST ALT Alkaline Phosphatase Total Protein Albumin Globulin Albumin/Globulin Ratio TSH Free T4 Urine Color Colorless Urine Appearance Clear Urine pH 7.0 Ur Specific [employer] 1.001 L Urine Protein Negative Urine Ketones Negative Urine Blood Negative Urine Nitrate Negative Urine Bilirubin Negative Urine Urobilinogen Negative Ur Leukocyte Esterase Negative Urine Glucose Negative Urine Opiates Screen Ur Barbiturates Screen Valproic Acid Ur Phencyclidine Scrn Ur Amphetamines Screen U Benzodiazepines Scrn Urine Cocaine Screen U Cannabinoids Screen Continued Medication Management: Continue Outpt Medication Medications: Current Medications Acetaminophen (Tylenol Tab*) 650 mg PO Q4H PRN PRN Reason: for pain; or Temp >101 F Al Hydrox/Mg Hydrox/Simethicone (Maalox Plus*) 30 ml PO Q4H PRN PRN Reason: INDIGESTION Chlorpromazine HCl (Thorazine Tab*) 100 mg PO Q6H PRN PRN Reason: AGITATION Lorazepam (Ativan Tab(*)) 1 mg PO Q6H PRN PRN Reason: ANXIETY Last Admin: 08/04/19 08:10 Dose: 1 mg Valproic Acid (Depakene Cap(*)) 500 mg PO BID [facility] Last Admin: 08/08/19 13:12 Dose: Not Given - Discharge Plan Discharge Plan: Inpatient Hospitalization
--- NOTE | 2019-08-08 15:20 | ECHO ---
*[facility]* [place] [address] Fax #: [phone] Transthoracic Echocardiogram Patient: Mainor Shah : 1995 Study Date: 08/08/2019 Age: 24 Gender: M HR: 111 bpm Height: 70 in /177.8 cm BSA: 1.78 m^2 Weight: 136.7 lb /62.1 kg BMI: 19.7 kg/m^2 *Band Saw Operator: * Vidhi Espinoza RD *Referring Physician: * David MarcanoReading Physician: * Daniel Mcdonough MD Indications: Abnormal EKG. History: Mental health history. Conclusions Summary: - Left ventricle: Systolic function is normal. The estimated ejection fraction is 55-60%. Wall motion is normal; there are no regional wall motion abnormalities. - Right ventricle: Systolic function is normal. - Mitral valve: There is no significant regurgitation. - Aortic valve: There is no evidence of stenosis. - Ascending aorta: The ascending aorta is appears normal. - Pulmonary arteries: Systolic pressure can not be accurately estimated. - Study data: No prior study is available for comparison. Study data: Transthoracic echocardiogram. Procedure: Transthoracic echocardiography was performed. Image quality was good. Complete 2D, spectral Doppler, and color flow Doppler. Location: Bedside. Patient status: Inpatient. Patient room number: 213-02. No prior study is available for comparison. Rhythm: Tachycardia. Findings Left ventricle: The cavity size is normal. Wall thickness is normal. Systolic function is normal. The estimated ejection fraction is 55-60%. Wall motion is normal; there are no regional wall motion abnormalities. Left ventricular diastolic function parameters are normal. Right ventricle: The cavity size is mildly dilated. Systolic function is normal. Left atrium: The atrium is normal in size. Right atrium: The atrium is normal in size. Mitral valve: The leaflets are normal thickness. There is no evidence of stenosis. There is no significant regurgitation. Aortic valve: The valve is trileaflet. The leaflets are normal thickness. There is no evidence of stenosis. There is no significant regurgitation. Tricuspid valve: The leaflets are normal thickness. There is no evidence of stenosis. There is physiologic regurgitation. Pulmonic valve: The leaflets are normal thickness. There is no evidence of stenosis. There is trace regurgitation. Aorta: Aortic root: The aortic root is appears normal. Ascending aorta: The ascending aorta is appears normal. Aortic arch: The aortic arch is appears normal. Pericardium: There is no significant pericardial effusion. Pulmonary arteries: The main pulmonary artery is normal-sized. Systolic pressure can not be accurately estimated. Systemic veins: Inferior vena cava: The vessel is normal in size. There is (>= 50%) respiratory change in the IVC dimension. Measurements Left ventricle Value Ref Right atrium Value Ref LENY, LAX 4.8 cm 4.2 - 5.8 SI dim, ES 4.3 cm 3.4 - 5.3 ESD, LAX 3.4 cm 2.5 - 4.0 ML dim, ES, A4C 4.2 cm 2.6 - 4.4 FS, LAX 30 % 25 43 Estimated RAP 3 mm Hg --------- PW, ED, LAX 0.9 cm 0.6 - 1.0 FS 30 % Aortic valve Value Ref Mid-wall FS 16 % Fabby diam, ED 2.3 cm --------- PW, ED 0.9 cm 0.6 - 1.0 Peak v, S 1.8 m/sec --------- E', lat fabby, TDI 21.3 cm/sec >=10.0 VTI, S 28.0 cm ---- ----- E/e', lat fabby, 4 Mean grad, S 7.0 mm Hg ------- -- TDI Peak grad, S 13.0 mm Hg --------- E', med fbaby, TDI 18.2 cm/sec >=7.0 LVOT/AV, VTI ratio 0.75 ---- ----- E/e', med fabby, 4 TDI Mitral valve Value Ref E', avg, TDI 19.8 cm/sec Peak E 0.79 m/sec ------- -- E/e', avg, TDI 4 <=14 Peak A 0.66 m/sec ---- ----- Decel time 130 ms --------- LVOT Value Ref Peak grad, D 2.5 mm Hg --------- Peak [place], S 1.4 m/sec Peak E/A ratio 1.2 --------- VTI, S 21.0 cm Peak grad, S 8 mm Hg Pulmonic valve Value Ref Mean grad, S 4 mm Hg Peak v, S 1.34 m/sec --------- Peak grad, S 7.0 mm Hg --------- Ventricular septum Value Ref IVS, ED 0.8 cm 0.6 - 1.0 Aortic root Value Ref Root diam 2.7 cm <3.4 Right ventricle Value Ref LENY, LAX 3.0 cm Ascending aorta Value Ref LENY minor ax, A4C (H) 3.7 cm 1.9 - 3.5 AAo AP diam, S 2.7 cm --------- mid Aortic arch Value Ref Left atrium Value Ref Arch diam 1.9 cm --------- AP dim, ES 3.20 cm 3.00 - 4.00 Decending aorta Value Ref ML dim, A4C 3.7 cm Rasheed peak [place] 1.22 m/sec --------- SI dim, A4C 4.6 cm Vol/bsa, ES, 1-p 26 ml/m^2 12 - 37 A4C Vol/bsa, ES, A/L 30 ml/m^2 16 - 34 Legend: (L) and (H) martin values outside specified reference range. Prepared and electronically signed by Daniel Mcdonough MD 08/08/2019 15:20
[2019-08-08] MEDS ORDERED: OLANzapine TAB*ODT* 5 MG PO ONE (15:55)
[2019-08-08] MEDS ORDERED: OLANzapine TAB*ODT* 5 MG ONE (16:06)
[2019-08-08 19:21] LABS: Influenza A Molecular Negative (Negative); Influenza B Molecular Negative (Negative)
[2019-08-09] MEDS ORDERED: OLANzapine TAB* 10 MG PO PRN (08:20)
[2019-08-09] MEDS ORDERED: Valproic Acid CAP(*) 250 MG PO SCH ×2 (09:00→21:00)
[2019-08-09] MEDS ORDERED: ARIPiprazole TAB* 5 MG PO SCH ×3 (09:00→21:00)
[2019-08-09 09:02] VITALS: BP 140/96
--- NOTE | 2019-08-09 13:49 | DS ---
Subjective - Subjective Service Types: [address] [facility] Day Mgmt complex over 30 min Discharge Date: 08/09/19 Subjective: CC: " I plan to take my medication" Patient looks forward to dancing. The patient was seen and evaluated before discharge today. The patient reported having adequate appetite and sleep 6.5 hours. The patient reports attending some of day groups. Patient reported tolerating medications without side effects. Justification for admission: Immediate Safety. CC " I just want to dance" The patient was brought to [facility] by EMS with police for MHE following an incident where he was pulled over with drugs in the car and was brought into the police station and began to lay on the floor asking for an interview and requesting to be handcuffed because he is a danger to himself and would take the police guns. Patient was seen in his room before encounter in his room pacing. The patient expressed that the government is spying on him and asks if it is really true that people landed on the [place], patient is requesting to Skype his mother and begins to say I once watched a movie with her. He denied access to firearms or stockpiles of medications. He reported diminished sleep and appetite, and is refusing medications and to drink water. The patient denied auditory and/ or visual hallucinations. Psychosis Patient believes that the government is out to get him, and spies on him and feels unsafe of all government entities. Bipolar Patient has increased talkativeness and feeling irritable most of the time while having an persistent abundance of energy most of the day without the use of energy drinks, stimulants, or recreational drug use. He reported having the decreased need to sleep for days. Per his mother he has been spending money recklessly . Depression Denied feeling depressed. Denied having diminished interests which were found to be enjoyable in the past. Denied having crying spells , feeling empty inside , feelings of hopelessness , and worthlessness. Denied unintentional weight loss and appetite. Denied interruption of sleep , or feeling tired throughout the day. Denied loss of energy or lack of motivation to complete tasks. Denied overwhelming feelings of guilt or decreased concentration. Denied recurrent thoughts of . Denied thoughts that they would be better off . Anxiety Denied having symptoms of anxiety such as having times where heart feels that it is beating out of chest , sweaty palms, or shallow breathing. Denied having uncomfortable or intrusive thoughts. Denied feeling restless, high strung, or worrying too much most of the time. Phobias: Patient denied having excessive fear of a particular thing or situation. Eating disorders: Patient denied having excessive eating habits or feelings of guilt after eating. Denied repeated episodes of self induced vomiting after eating. PTSD Denied flashbacks, nightmares and avoidance of a prior traumatic event. PAST PSYCHIATRIC HISTORY: Prior Diagnosis : None History of past Psychiatric Hospitalizations: Denied prior psychiatric admission. History of past suicide/homicide attempts : Denied past suicide attempts, denied repeated self injurious behavior. Denied history of violence. Outpatient follow-up: Denied Medications: Denied a past trials of medication Guardianship: None. FAMILY HISTORY: - Suicide: Denied family history of suicide. - Mental illness: Denied a history of mental health in immediate family members. - Substance abuse: Denied substance abuse among family members. SUBSTANCE ABUSE HISTORY: - EtOH: Denied recent use. No associated legal issues, blackouts, seizures, DTs or past hospitalizations due to alcohol. - Tobacco: 1/2 PPD - Cannabis: Denied - Heroin: Denied - Cocaine: Denied - Substance abuse treatment: Denied past substance abuse treatment SOCIAL HISTORY: - Denied a history of childhood physical and or sexual abuse Born in [place] - Education: - Living situation: Currently lives in [place] [facility] with his mother - Employment history: Works at [employer] - Relationship: Single and has no children. - Legal history: Denied - service history: Denied PAST MEDICAL HISTORY: Denied heart disease, diabetes, cancer and/ or other medical conditions. - Allergies: Denied drug or other allergies. Physical Exam: Please see ED note Mental Status Exam on Admission APPEARANCE : 23 year old Male who appears stated age. Patient is malodourous, and appears to have poor hygiene and grooming. BEHAVIOR: evasive EYE CONTACT: Poor PSYCHOMOTOR ACTIVITY: restless MOVEMENTS: pacing SPEECH : Increased rate MOOD : "I am stressed " AFFECT : Type is elevated Range is restricted Mood Incongruent THOUGHT PROCESS: Formulated in tangential disorganized THOUGHT CONTENT: paranoid delusions PERCEPTION: No current auditory or visual hallucinations. SUICIDALITY Denied suicidal ideation, intent or plan. HOMICIDALITY Denied homicidal ideation, intent or plan. Insight/judgment: Poor insight and judgment ORIENTATION: Oriented to self, location, and time. Diagnosis on Admission: Bipolar I disorder with psychotic features Diagnosis on Discharge: Bipolar I disorder in partial remission. Condition at the time of discharge: At the time of discharge patient showed improvement of sleep and appetite. The patient was not a danger to self or others. The patient denied suicidal ideation, intent or plan. The patient denied homicidal targets, ideation, intent or plan. This patient participated in psychosocial rehabilitation and gained some insight into problems. The patient gained insight into mental illness, triggers, and treatment. The patient took medication as prescribed. The patient denied side effects of medication and objective signs of side effects were not evident. Therapy Resources were offered to the patient. Patient was given a supply of prescriptions at the time of discharge. The patient plans to attend follow up care with the follow up arrangements that were discussed and put in place. Patient was asked to keep appointments as scheduled, take medication as prescribed, have routine follow up care with their primary care physician and refrain from any use of alcohol or drugs. Objective - General Observations Appearance: Neat Appears Stated Age: Yes Stature: WNL Posture: WNL Eye Contact: Average Behavior/Activity: WNL - Interaction Observations Attitude Towards Examiner: Cooperative Stated Mood: Euthymic Affect: Restricted Speech Pattern/Tone: Clear, Appropriate, Normal Volume Thought Process: Coherent Perception: WNL Thought Content: WNL Hallucination Type: None Delusion Type: None - Cognitive Function Orientation: A&O x 4 Level of Consciousness: Awake - Medication Compliance Cooperative with Inpatient Medication Regimen: Yes - Group Participation Participates in Group Activities: Partial Treatment Course & Assessment Clinical Course & Impression: Hospital course part A: 23 year old male with no known psychiatric history came to the hospital by EMS by police after he requested to be handcuffed and threatened to take guns from the police Hospital course part B: Labs ordered included CBC, CMP, UDS, TSH, HBA1c, TSH, CK, Influenza, VA level, ECHO cardiogram. Toxicology screen, Urine analysis, and lipid profile. Labs were reviewed and vital signs were monitored during the course of admission. EKG ordered for risk of QT prolongation of antipsychotic medication. EKG was reviewed and no abnormal findings were present The patient was admitted to the adult behavioral unit and placed on 15 minute check for safety. At a later time the patient was on Q30 minute observation and staff pass privileges. With those limits being extended, patient was safe on all checks and there were no occurrence of behavioral incidents. The patient did well on the unit and went to groups. Interacted with peers had adequate sleep and regular appetite. Tolerated medication changes without side effects. Group therapy and services were offered. The risks, benefits, and alternative treatment options were discussed as well as of the risks of refusing treatment. Treatment associated risks discussed. After this discussion the patient made an acknowledgement of this understanding. Follow up care appointments were put in place. HBA1c, glucose, and lipid panel was ordered and reviewed to monitor metabolic status. Monitoring for metabolic changes was reviewed and it was emphasized to the patient to be continued to be monitored upon discharge. The patient was informed not to abruptly stop or start new medications before consulting with a medical professional. Improvements shown from the time of admission include: Improved affect, sleep and decrease in anxiety. The patient expressed readiness for discharge home. The patient presents with a broader range of affect, and the absence of depressed mood, delusions, perceptual disturbance. The patient denied suicidal and or homicidal ideation intent or plan. Overall, the patient responded well to inpatient treatment as evidenced by their report of strengthening of coping mechanisms, reduced distress, and more positive outlook on circumstances. Of note there was an improvement of recognizing how emotional state can effect mood and behavior. Safety precautions were put in place which included involving the patient and their family to closely monitor for changes in mental state. In addition, implementing follow up care, screening for the need to remove/securing firearms , weapons and stockpile of medications. Patient/ family instructed to immediately call 911 should any safety concerns arise. Nicotine replacement was offered to decrease nicotine cravings and declined. Patient informed of the dangers of smoking and offered nicotine cessation resources and declined. AIMS was performed and insignificant for involuntary movement disorders. The patient was advised of the 24 hour / 7 days a week availability of the emergency room and to call 911 in the event of an emergency such as being suicidal and/ or homicidal. The patient was informed of the contact information for [facility], Suicide Prevention and Crisis Services, National Suicide Prevention Lifeline, [facility], Alcoholics Anonymous, and [facility]. Valproic acid level was 107 and was held and continued the next day. He was were advised about the importance of monitoring medication levels after leaving the hospital. Patient refused repeat valproic acid level and plans to have medication levels monitored on the outpatient basis. His mother plans to monitor medications. Medications started included abilify 10mg po daily for psychosis and valproic acid 500mg BID for mood stabilization. Seroquel 400mg qhs was started and discontinued due to tachycardia. Medicine evaluated the patient and ECHO was performed. The patients vitals stabilized. Patient had slight fever and influenza was ordered and is negative and CK was normal. Family meeting took place before discharge. The family confirmed that the patient is at their baseline but expressed concerns about medication adherence once discharged. Patient was not given long acting injection because of his increased heart rate it would be advised that the patient have a longer trial of oral medication before starting long acting injection. At this time both the patient is eager for discharge and are in agreement with the discharge plan and can receive care in the less restrictive outpatient setting. They were advised on how the days following discharge can be a vulnerable period and to look out for warning signs associated with decompensation and progression of mental illness. They were notified of the resources available in the event these situations arise and confirmed that the patient has no access to firearms or stockpiles of medications. Consults included to medicine team for increased heart rate and ECHO was performed and did not show abnormalities. Patient was not assaultive or a behavioral problem during the course of admission. The patient showed good hygiene and was able to carry out activities of daily living. Patient will be discharged to live at home. Follow up appointment at [facility] and PCP Patient informed of follow up appointment times. See more details for follow up care in the discharge plan. Risk factors were mitigated by establishing the patients baseline with close contacts and arranging a family meeting. Implemented precautionary safety measures by confirming no stockpiles of medications and no access to firearms, provided mental health treatment, stabilization of psychosis, provided resources to outpatient services, as well as provided a supportive care environment and therapy resources during the course of hospitalization. Safety plan was reviewed with the patient and treatment team. The patient verbalized options they would pursue to ensure their safety in the event they feel unsafe and not doing well. Risk factors: Male, , single, Bipolar disorder , recent hospitalization, intermittent compliance. Protective factors: At discharge patient did not have suicidal ideation, intent or plan. Patient has not made a prior suicide attempt. Has social/ family support system. No history of service. Currently no feelings of hopelessness, not in an occupation of social isolation, doesnt have multiple medical conditions, no family history of suicide, doesnt have access to firearms. Doesnt have command hallucinations and or psychotic features at this time. No current substance abuse. No current alcohol abuse. Not an anniversary of a loss of a loved one. No recent stressful life event. Currently future orientated. No barriers to seek mental health treatment. Not incarcerated. Not middle or older age. No history of self-injurious behavior, doesnt have cultural belief that supports suicide. Patient does not have a recent loss of someone close that by suicide. 08/07/19 08/07/19 08/07/19 20:34 20:34 21:05 WBC 8.5 RBC 5.57 H Hgb 14.8 Hct 45 MCV 81 MCH 27 MCHC 33 RDW 14 Plt Count 221 MPV 8.8 Neut % (Auto) 66.7 Lymph % (Auto) 26.3 [place] % (Auto) 6.0 Eos % (Auto) 0.5 Baso % (Auto) 0.5 Absolute Neuts (auto) 5.6 Absolute Lymphs (auto) 2.2 Absolute Monos (auto) 0.5 Absolute Eos (auto) 0.0 Absolute Basos (auto) 0.0 Absolute Nucleated RBC 0.0 Nucleated RBC % 0.1 Sodium 138 Potassium 3.6 Chloride 101 Carbon Dioxide 30 Anion Gap 7 BUN 10 Creatinine 0.91 Est GFR ( Amer) 124.9 Est GFR (Non-Af Amer) 103.2 BUN/Creatinine Ratio 11.0 Glucose 147 H Calcium 9.4 Magnesium 2.1 Total Bilirubin 0.60 AST 13 ALT 11 Alkaline Phosphatase 39 Total Creatine Kinase Total Protein 7.3 Albumin 5.1 Globulin 2.2 Albumin/Globulin Ratio 2.3 TSH 1.16 Free T4 0.84 Urine Color Urine Appearance Urine pH Ur Specific [place] Urine Protein Urine Ketones Urine Blood Urine Nitrate Urine Bilirubin Urine Urobilinogen Ur Leukocyte Esterase Urine Glucose Urine Opiates Screen None detected Ur Barbiturates Screen None detected Valproic Acid 107.0 H Ur Phencyclidine Scrn None detected Ur Amphetamines Screen None detected U Benzodiazepines Scrn None detected Urine Cocaine Screen None detected U Cannabinoids Screen None detected Influenza A (Rapid) Influenza B (Rapid) 08/07/19 08/08/19 08/08/19 21:05 18:19 18:27 WBC RBC Hgb Hct MCV MCH MCHC RDW Plt Count MPV Neut % (Auto) Lymph % (Auto) [place] % (Auto) Eos % (Auto) Baso % (Auto) Absolute Neuts (auto) Absolute Lymphs (auto) Absolute Monos (auto) Absolute Eos (auto) Absolute Basos (auto) Absolute Nucleated RBC Nucleated RBC % Sodium Potassium Chloride Carbon Dioxide Anion Gap BUN Creatinine Est GFR ( Amer) Est GFR (Non-Af Amer) BUN/Creatinine Ratio Glucose Calcium Magnesium Total Bilirubin AST ALT Alkaline Phosphatase Total Creatine Kinase 78 Total Protein Albumin Globulin Albumin/Globulin Ratio TSH Free T4 Urine Color Colorless Urine Appearance Clear Urine pH 7.0 Ur Specific [place] 1.001 L Urine Protein Negative Urine Ketones Negative Urine Blood Negative Urine Nitrate Negative Urine Bilirubin Negative Urine Urobilinogen Negative Ur Leukocyte Esterase Negative Urine Glucose Negative Urine Opiates Screen Ur Barbiturates Screen Valproic Acid Ur Phencyclidine Scrn Ur Amphetamines Screen U Benzodiazepines Scrn Urine Cocaine Screen U Cannabinoids Screen Influenza A (Rapid) Negative Influenza B (Rapid) Negative Merits Inpatient Hospitalization: No Clear for Discharge: Adequate Clinical Respons Discharge Planning - Discharge Planning Discharge Plan: Outpatient Follow Up Outpatient [facility] Recommendations for Continuing Care: Medication Management, Therapeutic Drug Levels Medications: Current Medications Acetaminophen (Tylenol Tab*) 650 mg PO Q4H PRN PRN Reason: for pain; or Temp >101 F Al Hydrox/Mg Hydrox/Simethicone (Maalox Plus*) 30 ml PO Q4H PRN PRN Reason: INDIGESTION Aripiprazole (Abilify Tab*) 10 mg PO BEDTIME CARLINE Lorazepam (Ativan Tab(*)) 1 mg PO Q6H PRN PRN Reason: ANXIETY Last Admin: 08/09/19 09:57 Dose: 1 mg Olanzapine (Zyprexa Tab*) 10 mg PO Q6H PRN PRN Reason: AGITATION Valproic Acid (Depakene Cap(*)) 750 mg PO BEDTIME CARLINE Discharge Planning: Prescriptions provided for discharge [x] Yes [] No Follow up care details as per social work arrangements. Patient response to discharge plan: [x] eager for discharge [] agreeable with discharge plan [] ambivalent about discharge [] disagrees with discharge today
== END 2019-08-09 16:47 | disposition home or self-care (01) | DRG 753 ==
LOC: ED 14:58 → BSU 15:50 → ED 18:22 → BSU 08-08 05:15
PROVIDERS: ADMIT Psychiatry & Neurology Psychiatry; ATTEND Psychiatry & Neurology Psychiatry
DX: F31.9 Bipolar disorder, unspecified (principal); R45.851 Suicidal ideations; F28 Other psychotic disorder not due to a substance or known physiological condition; F17.210 Nicotine dependence, cigarettes, uncomplicated; R00.0 Tachycardia, unspecified; Z80.1 Family history of malignant neoplasm of trachea, bronchus and lung
CPT/HCPCS: 36415; 71046; 80053; 80164; 80307; 81003; 82550; 83735; 84439; 84443; 85025; 90853; 93005; 93306; 99222; 99232; 99233; 99284; A9270-GY; G0480

== ENCOUNTER 2019-11-19 17:26 | Inpatient (IN) ==
[2019-11-19 17:55] LABS: Hematocrit 43 % (42-52); Hemoglobin 14.5 g/dL (14.0-18.0); Mean Corpuscular HGB Conc 34 g/dL (31-36); Mean Corpuscular Hemoglobin 28 pg (27-31); Mean Corpuscular Volume 82 fL (80-94); Mean Platelet Volume 8.9 fL (7.4-10.4); Platelet Count 219 10^3/uL (150-450); Red Blood Count 5.21 10^6 /uL (4.18-5.48); Red Cell Distribution Width 14 % (10-15); White Blood Count 6.8 10^3/uL (3.5-10.8)
[2019-11-19 18:02] LABS: ABS Basophils 0.1 10^3/ul (0-0.2); ABS Lymphocytes 1.8 10^3/ul (1.0-4.8); ABS Monocytes 0.6 10^3/ul (0-0.8); Eosinophil % 0.4 %; Lymphocyte % 25.6 %; Nucleated Red Blood Cells % 0.1
[2019-11-19 18:16] LABS: ALT 13 U/L (7-52); AST 20 U/L (13-39); Albumin 4.9 g/dL (3.2-5.2); Albumin/Globulin Ratio 2.2 (1-3); Alkaline Phosphatase 42 U/L (34-104); Anion Gap 11 mmol/L (2-11); BUN/Creatinine Ratio 13.6 (8-20); Blood Urea Nitrogen 14 mg/dL (6-24); CO2 Carbon Dioxide 25 mmol/L (22-32); Calcium 9.9 mg/dL (8.6-10.3); Chloride 103 mmol/L (101-111); EGFR African American 108.3 (>60); EGFR Non-African American 89.5 (>60); Globulin 2.2 g/dL (2-4); Glucose 136 mg/dL (70-100); Potassium 3.5 mmol/L (3.5-5.0); Sodium 139 mmol/L (135-145); Total Protein 7.1 g/dL (6.4-8.9)
[2019-11-19 18:17] LABS: Acetaminophen < 15 mcg/mL; Alcohol, S < 10 mg/dL (<10); Salicylate < 2.50 mg/dL (<30)
[2019-11-19 18:30] LABS: TSH (Thyroid Stimulating Horm) 1.21 mcIU/mL (0.34-5.60)
[2019-11-19 18:32] LABS: Urine Appearance Cloudy; Urine Bilirubin Negative (Negative); Urine Blood Negative (Negative); Urine Color Yellow; Urine Glucose Negative (Negative); Urine Ketones Trace (Negative); Urine Nitrite Negative (Negative); Urine Protein 1+(30 mg/dL) (Negative); Urine Urobilinogen Negative (Negative)
[2019-11-19 18:40] LABS: Urine Bacteria Absent (Absent); Urine Red Blood Cell Trace(0-2/hpf) (Absent); Urine Squamous Epithelial Cell Present (Absent); Urine White Blood Cell Trace(0-5/hpf) (Absent)
[2019-11-19 18:46] LABS: Urine Benzodiazepine Screen None Detected (None Detect); Urine Opiates Screen None Detected (None Detect)
[2019-11-19] MEDS ORDERED: Al Hydrox/Mg Hydrox/Simet LIQ 30 ML UDC PO PRN (20:42)
[2019-11-19] MEDS ORDERED: chlorproMAZINE TAB* 50 MG Q6H PRN AGITATION PO (20:42)
[2019-11-19] MEDS ORDERED: LORazepam 1 mg TAB (*) PO ONE (22:24)
[2019-11-20] MEDS: Vitamin THERAPEUTIC TAB PO SCH (10:08)
[2019-11-20] MEDS: Divalproex ER 500 mg TAB (*) PO SCH ×2 (15:57→21:39)
[2019-11-21] MEDS: Divalproex ER 500 mg TAB (*) PO SCH ×2 (08:52→21:29)
[2019-11-21] MEDS: Vitamin THERAPEUTIC TAB PO SCH (08:52)
[2019-11-22] MEDS: Divalproex ER 500 mg TAB (*) PO SCH ×2 (09:08→21:46)
[2019-11-22] MEDS: Vitamin THERAPEUTIC TAB PO SCH (09:08)
[2019-11-22] MEDS ORDERED: LORazepam 1 mg TAB (*) PO ONE ×2 (13:01→13:09)
[2019-11-22] MEDS ORDERED: LORazepam 1 mg TAB (*) ONE (13:10)
[2019-11-23 08:01] LABS: HDL Cholesterol 56.7 mg/dL
[2019-11-23] MEDS: Divalproex ER 500 mg TAB (*) PO SCH ×2 (09:11→20:38)
[2019-11-23] MEDS: Vitamin THERAPEUTIC TAB PO SCH (09:11)
[2019-11-24] MEDS: Vitamin THERAPEUTIC TAB PO SCH (10:05)
[2019-11-24] MEDS: Divalproex ER 500 mg TAB (*) PO SCH ×2 (10:05→21:42)
[2019-11-25] MEDS: Divalproex ER 500 mg TAB (*) PO SCH ×2 (09:21→21:22)
[2019-11-25] MEDS: Vitamin THERAPEUTIC TAB PO SCH (09:22)
[2019-11-26] MEDS: Vitamin THERAPEUTIC TAB PO SCH (08:49)
[2019-11-26] MEDS: Divalproex ER 500 mg TAB (*) PO SCH ×2 (08:49→21:44)
[2019-11-27] MEDS: Vitamin THERAPEUTIC TAB PO SCH (08:57)
[2019-11-27] MEDS: Divalproex ER 500 mg TAB (*) PO SCH ×2 (08:57→22:13)
[2019-11-27] MEDS ORDERED: Paliperidone SUSTENNA 234 MG/1.5 ML IM ONE (09:00)
[2019-11-28] MEDS ORDERED: Paliperidone SUSTENNA 234 MG/1.5 ML IM ONE (08:00)
[2019-11-28] MEDS: Divalproex ER 500 mg TAB (*) PO SCH ×2 (11:14→21:45)
[2019-11-28] MEDS: Vitamin THERAPEUTIC TAB PO SCH (11:14)
[2019-11-29] MEDS: Vitamin THERAPEUTIC TAB PO SCH (09:47)
[2019-11-29] MEDS: Divalproex ER 500 mg TAB (*) PO SCH ×2 (09:47→20:58)
[2019-11-30] MEDS: Divalproex ER 500 mg TAB (*) PO SCH ×2 (10:29→21:51)
[2019-11-30] MEDS: Vitamin THERAPEUTIC TAB PO SCH (10:29)
[2019-12-01 08:21] VITALS: BP 122/62
[2019-12-01] MEDS ORDERED: Paliperidone SUSTENNA 156 MG/1 ML IM ONE (08:38)
[2019-12-01] MEDS: Vitamin THERAPEUTIC TAB PO SCH (09:48)
[2019-12-01] MEDS: Divalproex ER 500 mg TAB (*) PO SCH (09:48)
== END 2019-12-01 11:05 | disposition home or self-care (01) | DRG 753 ==
LOC: ED 17:26 → BSU 21:26
PROVIDERS: ADMIT Psychiatry & Neurology Addiction Psychiatry; ATTEND Psychiatry & Neurology Psychiatry

== ENCOUNTER 2019-12-24 21:48 | Inpatient (IN) ==
[2019-12-24 22:59] LABS: ABS Basophils 0.1 10^3/ul (0-0.2); ABS Lymphocytes 2.1 10^3/ul (1.0-4.8); ABS Monocytes 0.8 10^3/ul (0-0.8); ABS Neutrophils 4.8 10^3/ul (1.5-7.7); Eosinophil % 0.5 %; Hematocrit 40 % (42-52); Hemoglobin 13.6 g/dL (14.0-18.0); Lymphocyte % 27.3 %; Mean Corpuscular HGB Conc 34 g/dL (31-36); Mean Corpuscular Hemoglobin 27 pg (27-31); Mean Corpuscular Volume 81 fL (80-94); Mean Platelet Volume 8.7 fL (7.4-10.4); Nucleated Red Blood Cells % 0.1; Platelet Count 205 10^3/uL (150-450); Red Blood Count 5.01 10^6 /uL (4.18-5.48); Red Cell Distribution Width 14 % (10-15); White Blood Count 7.8 10^3/uL (3.5-10.8)
[2019-12-24 23:10] LABS: ALT 41 U/L (7-52); AST 43 U/L (13-39); Albumin 4.7 g/dL (3.2-5.2); Alkaline Phosphatase 42 U/L (34-104); Anion Gap 10 mmol/L (2-11); BUN/Creatinine Ratio 24.7 (8-20); Blood Urea Nitrogen 22 mg/dL (6-24); CO2 Carbon Dioxide 25 mmol/L (22-32); Calcium 9.5 mg/dL (8.6-10.3); Chloride 105 mmol/L (101-111); EGFR African American 128.2 (>60); EGFR Non-African American 105.9 (>60); Globulin 2.3 g/dL (2-4); Glucose 100 mg/dL (70-100); Potassium 3.7 mmol/L (3.5-5.0); Sodium 140 mmol/L (135-145)
[2019-12-24 23:22] LABS: Acetaminophen < 15 mcg/mL; Alcohol, S < 10 mg/dL (<10); Salicylate < 2.50 mg/dL (<30)
[2019-12-24 23:28] LABS: Urine Appearance Clear; Urine Bilirubin Negative (Negative); Urine Blood Negative (Negative); Urine Color Yellow; Urine Glucose Negative (Negative); Urine Ketones 1+ (Negative); Urine Nitrite Negative (Negative); Urine Protein Negative (Negative); Urine Specific Gravity 1.025 (1.010-1.030); Urine Urobilinogen Negative (Negative)
[2019-12-24 23:36] LABS: TSH Ultra Thyroid Stim Horm 2.56 mcIU/mL (0.34-5.60)
[2019-12-24 23:58] LABS: Urine Benzodiazepine Screen None Detected (None Detect); Urine Cannabinoids Screen Presumptive Positive (None Detect); Urine Opiates Screen None Detected (None Detect)
[2019-12-25 10:21] LABS: Valproic Acid < 13.0 mcg/mL (50-100)
[2019-12-25] MEDS ORDERED: Paliperidone SUSTENNA 156 MG/1 ML IM ONE (10:25)
[2019-12-25] MEDS ORDERED: Al Hydrox/Mg Hydrox/Simet LIQ 30 ML UDC PO PRN (11:18)
[2019-12-26] MEDS: Vitamin THERAPEUTIC TAB PO SCH (13:17)
[2019-12-27] MEDS: Vitamin THERAPEUTIC TAB PO SCH (08:43)
[2019-12-28 08:31] VITALS: BP 150/74
[2019-12-28] MEDS: Vitamin THERAPEUTIC TAB PO SCH (09:42)
== END 2019-12-28 12:00 | disposition home or self-care (01) | DRG 753 ==
LOC: ED 21:48 → BSU 12-25 08:40 → ED 12-25 09:16
PROVIDERS: ADMIT Psychiatry & Neurology Psychiatry; ATTEND Psychiatry & Neurology Psychiatry